=== PATIENT | male | born 2000 | race American Indian/Alaskan Native ===

== ENCOUNTER 2022-10-29 16:55 | Emergency (ER) | payer OTHER ==
[2022-10-29] MEDS ORDERED: Famotidine 20 MG/2 ML SDV IVPUSH ONE (17:03)
[2022-10-29] MEDS ORDERED: LORazepam 2 MG/ML SDV IVPUSH ONE (17:03)
[2022-10-29] MEDS ORDERED: MVI, Adult with Vitamin K 10 ML, Thiamine 100 MG, Folic Acid 1 MG in Lactated Ringers 1... IV ONE ×4 (17:03)
[2022-10-29 17:42] VITALS: PULSE 143
[2022-10-29 17:56] LABS: ANION GAP 13.8 mEq/L (7-13); CHLORIDE,CL 101 mmol/L (98-107); SODIUM,NA 140 mmol/L (136-145)
[2022-10-29 17:59] LABS: AMPHETAMINES,URINE NEGATIVE (NEGATIVE); BARBITURATES,URINE NEGATIVE (NEGATIVE); BENZODIAZEPINE,URINE NEGATIVE (NEGATIVE); MDMA (ECSTASY), URINE POSITIVE (NEGATIVE); METHADONE,URINE NEGATIVE (NEGATIVE); METHAMPHETAMINES,URINE NEGATIVE (NEGATIVE); OPIATES,URINE NEGATIVE (NEGATIVE); OXYCODONE,URINE NEGATIVE (NEGATIVE); PHENCYCLIDINE,URINE NEGATIVE (NEGATIVE); TCA,URINE NEGATIVE (NEGATIVE)
[2022-10-29 18:03] LABS: ESTIMATED GFR 78 mL/min (>=60)
[2022-10-29 18:12] LABS: CORONAVIRUS COVID-19 NAA NEGATIVE (NEGATIVE); RESPIRATORY SYNCYTIAL VIR NAA NEGATIVE (NEGATIVE)
[2022-10-29] MEDS ORDERED: cloNIDine 0.1 MG Tab PO ONE (18:31)
[2022-10-29] MEDS ORDERED: Sodium Chloride 0.9% 1,000 ML IV ONE (18:32)
[2022-10-29 18:36] VITALS: BP 140/81
== END 2022-10-29 21:16 | disposition home or self-care (01) ==
LOC: DL.ED 16:55
DX: T43.641A Poisoning by ecstasy, accidental (unintentional), initial encounter (principal); F10.10 Alcohol abuse, uncomplicated; R00.0 Tachycardia, unspecified; Z20.822 Contact with and (suspected) exposure to COVID-19
CPT/HCPCS: 0241U; 36415; 80053; 80305; 80307; 81001; 82150; 83690; 83735; 84443; 84484; 85025; 87086; 93005; 96361; 96365; 96375; 99285; A9270; J2060; J3411; J3490; J7030; J7120